=== PATIENT | female | born 1990 | race African-American/Black ===

== ENCOUNTER 2018-12-04 17:31 | Emergency (ER) | payer SELFPAY ==
[~2018-12-04] VITALS: Ht 170.2 cm; Wt 145.1 kg
[2018-12-04 17:37] VITALS: BP 157/88
[2018-12-04] MEDS ORDERED: HYDROcodone-ACET 5/325MG TAB PO ONE (19:30)
[2018-12-04] MEDS ORDERED: IBUPROFEN 600 MG TAB PO ONE (19:30)
== END 2018-12-04 19:59 | disposition home or self-care (01) ==
LOC: ER 17:36
DX: S83.92XA Sprain of unspecified site of left knee, initial encounter (principal); J45.909 Unspecified asthma, uncomplicated; F17.210 Nicotine dependence, cigarettes, uncomplicated; X50.0XXA Overexertion from strenuous movement or load, initial encounter; Y93.89 Activity, other specified; Y99.8 Other external cause status; Y92.89 Other specified places as the place of occurrence of the external cause
CPT/HCPCS: 29505; 73562